=== PATIENT | female | born 1985 | race Two or more races ===

== ENCOUNTER 2019-12-26 23:10 | Observation (INO) | payer OTHER ==
[~2019-12-26] VITALS: Ht 162.6 cm; Wt 80.7 kg
[~2019-12-26 23:10] MED LIST: PNV1TABL54 PO
[2019-12-27 00:11] VITALS: BP 108/63
== END 2019-12-27 00:05 | disposition home or self-care (01) ==
LOC: 4S 23:10
PROVIDERS: ADMIT Obstetrics & Gynecology; ATTEND Obstetrics & Gynecology
DX: O26.853 Spotting complicating pregnancy, third trimester (principal); O62.9 Abnormality of forces of labor, unspecified; Z3A.32 32 weeks gestation of pregnancy
CPT/HCPCS: 59025; 99219

== ENCOUNTER 2020-02-22 09:27 | Inpatient (IN) | payer OTHER ==
[~2020-02-22] VITALS: Ht 162.6 cm; Wt 83.0 kg
[2020-02-22] MEDS ORDERED: METHYLERGONOVINE MALEATE 0.2 MG/ML VIAL IM PRN (10:30)
[2020-02-22] MEDS ORDERED: OXYTOCIN 30 UNITS/LACT RINGERS 500 ML IV ONE (10:30)
[2020-02-22] MEDS ORDERED: RINGERS SOLUTION,LACTATED 1,000 ML IV PRN (10:30)
[2020-02-22] MEDS ORDERED: CITRIC ACID/SODIUM CITRATE 30 ML SOLUTION UDCUP PO PRN (10:30)
[2020-02-22] MEDS ORDERED: FentaNYL CITRATE-PF 100 MCG/2 ML VIAL IVP PRN (10:30)
[2020-02-22] MEDS ORDERED: RINGERS SOLUTION,LACTATED 1,000 ML IV SCH (10:30)
[2020-02-22] MEDS ORDERED: LIDOCAINE/PF 1% 30 ML VIAL INJ PRN (10:30)
[2020-02-22] MEDS ORDERED: METOCLOPRAMIDE HCL 5 MG/ML 2 ML VIAL IVP PRN (10:30)
[2020-02-22 11:14] LABS: BASOPHILS % (AUTO) 0.7 % (0.0-2.0); EOSINOPHILS % (AUTO) 0.9 % (1.0-6.0); HEMATOCRIT 37.5 % (36-46); HEMOGLOBIN 13.5 g/dL (12.0-16.0); LYMPHOCYTES # (AUTO) 1.9 K/uL (1.0-4.8); LYMPHOCYTES % (AUTO) 23.9 % (22.0-44.0); MEAN CORPUSCULAR HEMOGLOBIN 32.5 pg (26.0-34.0); MEAN CORPUSCULAR HGB CONC 35.9 G/dL (31.0-37.0); MEAN CORPUSCULAR VOLUME 91 fL (80-100); MONOCYTES # (AUTO) 0.7 K/uL (0.1-1.0); MONOCYTES % (AUTO) 8.5 % (2.0-9.0); NEUTROPHILS # (AUTO) 5.2 K/uL (1.8-7.7); PLATELET COUNT (AUTO)-OB 265 K/uL (150-450); RED BLOOD CELL COUNT(AUTO) 4.13 MIL/uL (4.00-5.20); RED CELL DISTRIBUTION WIDTH 13.2 % (11.5-14.5)
[2020-02-22] MEDS ORDERED: OXYTOCIN 30 UNITS/LACT RINGERS 500 ML IV PRN (12:00)
[2020-02-22 12:53] LABS: COVID AG,FIA SOURCE NASOPHARYNGEAL
[2020-02-22] MEDS ORDERED: ROPIVACAINE HCL/PF 0.2% 100 ML ED ONE (14:22)
[2020-02-22] MEDS ORDERED: ONDANSETRON HCL 4 MG/2 ML VIAL IVP PRN (14:45)
[2020-02-22] MEDS ORDERED: ROPIVACAINE HCL/PF 0.2% 100 ML ED PRN (14:45)
[2020-02-22] MEDS ORDERED: DiphenhydrAMINE HCL 50 MG/ML VIAL IVP PRN (14:45)
[2020-02-22] MEDS ORDERED: NALBUPHINE HCL 10 MG/ML VIAL IVP PRN (14:45)
[2020-02-22 15:14] VITALS: BP 104/62
[2020-02-22] MEDS ORDERED: CeFAZolin 2 GM/DEXTROSE 50 ML IV SCH (17:00)
[2020-02-22] MEDS ORDERED: BENZOCAINE 20%/MENTHOL 56 GM SPRAY CANISTER TP PRN (17:15)
[2020-02-22] MEDS ORDERED: LANOLIN 7 GM OINTMENT TP PRN (17:15)
[2020-02-22] MEDS ORDERED: ACETAMINOPHEN/CODEINE 300-30 MG TABLET PO PRN ×2 (17:15)
[2020-02-22] MEDS ORDERED: GLYCERIN/WITCH HAZEL LEAF 40 PADS JAR TP PRN (17:15)
[2020-02-22] MEDS ORDERED: OXYGEN THERAPY IH SCH (20:00)
[2020-02-23] MEDS ORDERED: CITRIC ACID/SODIUM CITRATE 30 ML SOLUTION UDCUP ONE ×2 (07:38→07:39)
[2020-02-23] MEDS ORDERED: METOCLOPRAMIDE HCL 5 MG/ML 2 ML VIAL IVP ONE (07:45)
[2020-02-23] MEDS ORDERED: MEPERIDINE-PF 25 MG/ML VIAL IVP PRN (08:15)
[2020-02-23] MEDS ORDERED: HYDROmorphone 2 MG/ML SYRINGE IVP PRN (08:15)
[2020-02-23] MEDS ORDERED: CITRIC ACID/SODIUM CITRATE 30 ML SOLUTION UDCUP PO ONE (08:15)
[2020-02-23] MEDS ORDERED: FentaNYL CITRATE-PF 100 MCG/2 ML VIAL IVP PRN (08:15)
[2020-02-23] MEDS ORDERED: HYDROCODONE/ACETAMINOPHEN 5-325 MG TABLET PO PRN (08:45)
[2020-02-23] MEDS ORDERED: HYDR-4455 PO ×2 (09:06→10:36)
[2020-02-23] MEDS ORDERED: DOCU-275 PO (10:40)
[2020-02-23] MEDS ORDERED: IBUP-2070 PO (10:41)
[2020-02-23] MEDS ORDERED: SENNA/DOCUSATE SODIUM 8.6-50 MG TABLET PO SCH ×2 (12:00→21:00)
[2020-02-23] MEDS ORDERED: PROPOFOL 1% 20 ML VIAL IVP ONE (17:49)
[2020-02-23] MEDS ORDERED: GLYCOPYRROLATE 0.2 MG/ML VIAL IM ONE (17:49)
[2020-02-23] MEDS ORDERED: LIDOCAINE/PF 2% 5 ML VIAL IM ONE (17:49)
[2020-02-23] MEDS ORDERED: FentaNYL CITRATE-PF 100 MCG/2 ML VIAL IVP ONE (17:49)
[2020-02-23] MEDS ORDERED: ONDANSETRON HCL 4 MG/2 ML VIAL IVP ONE (17:49)
[2020-02-23] MEDS ORDERED: DEXAMETHASONE SOD PHOS 4 MG/ML VIAL IVP ONE (17:49)
[2020-02-23] MEDS ORDERED: MIDAZOLAM HCL 2 MG/2 ML VIAL IVP ONE (17:49)
[2020-02-23] MEDS ORDERED: OXYGEN THERAPY IH SCH (20:00)
== END 2020-02-23 17:50 | disposition home or self-care (01) | DRG 798 ==
LOC: OBSVTOIN 09:27 → 4S 09:27
PROVIDERS: ADMIT Obstetrics & Gynecology; ATTEND Obstetrics & Gynecology
PROC: 10E0XZZ Delivery of Products of Conception, External Approach (ICD-10-PCS; principal; 2020-02-22)
PROC: 0W8NXZZ Division of Female Perineum, External Approach (ICD-10-PCS; 2020-02-22)
PROC: 3E0R3BZ Introduction of Anesthetic Agent into Spinal Canal, Percutaneous Approach (ICD-10-PCS; 2020-02-22)
PROC: 00HU33Z Insertion of Infusion Device into Spinal Canal, Percutaneous Approach (ICD-10-PCS; 2020-02-22)
PROC: 10907ZC Drainage of Amniotic Fluid, Therapeutic from Products of Conception, Via Natural or Artificial Opening (ICD-10-PCS; 2020-02-22)
PROC: 0UB70ZZ Excision of Bilateral Fallopian Tubes, Open Approach (ICD-10-PCS; 2020-02-23)
DX: O62.4 Hypertonic, incoordinate, and prolonged uterine contractions (principal); Z37.0 Single live birth; Z20.828 Contact with and (suspected) exposure to other viral communicable diseases; Z3A.40 40 weeks gestation of pregnancy; Z30.2 Encounter for sterilization
CPT/HCPCS: 86850; 86870; 86900; 86901; 87426; 88302; J0690; J1100; J1170; J2250; J2405; J2590; J2704; J2765; J2795; J3010; J3490; J7120